=== PATIENT | female | born 1995 | race Caucasian/White ===

== ENCOUNTER → 2022-04-11 | Outpatient (CLI) | payer BC, SELFPAY ==
[2022-04-13 00:07] LABS: Chlamydia By Nucleic Acid AMP Negative (Negative)
[2022-04-13 16:25] LABS: Gonococcus By Nucleic Acid AMP Negative (Negative)
[2022-04-13 18:48] LABS: HPV Reflexed? NOT INDICATED
== END | disposition home or self-care (01) ==
LOC: LABSPEC 12:14
PROVIDERS: Visit Provider Student in an Organized Health Care Education/Training Program
DX: Z12.4 Encounter for screening for malignant neoplasm of cervix (principal); Z11.3 Encounter for screening for infections with a predominantly sexual mode of transmission
CPT/HCPCS: 87491; 87591; 88175; G0145

== ENCOUNTER → 2022-04-21 | Outpatient (CLI) | payer BC, SELFPAY ==
[2022-04-21 12:54] LABS: Estradiol 109.8 pg/mL; Luteinizing Hormone 19.5 mIU/mL; Prolactin 20.5 ng/mL; T4 Free Direct 0.96 ng/dL (0.76-1.46); Thyroid Stim Hormone (TSH) 2.34 uIU/mL (0.358-3.74)
== END | disposition home or self-care (01) ==
LOC: WOBLAB 11:25
PROVIDERS: Visit Provider Student in an Organized Health Care Education/Training Program
DX: N93.9 Abnormal uterine and vaginal bleeding, unspecified (principal)
CPT/HCPCS: 36415; 82670; 83001; 83002; 84146; 84439; 84443

== ENCOUNTER 2023-02-22 16:23 | Emergency (ER) | payer SELFPAY ==
[2023-02-22 16:24] VITALS: BP 120/81; PULSE 61; RESP 18; TEMP 36.2; O2SAT 99; BMI 34.6
--- NOTE | 2023-02-22 17:06 | EDS_ITS ---
HPI HPI - Psych History of Present Illness Chief Complaint: Suicidal Informant: patient Onset/Context/Timing Onset: Today Context: Gradual Onset Conflict: Financial Timing: Continuous Worsened by: Situational factors Relieved by: Nothing Associated Symptoms Associated Symptoms - Psych: Positive for Depressed and Suicidal Thoughts; Negative for Change in Eating, Change in sleeping, Visual Hallucinations or Auditory Hallucinations Specific plan (suicidal thought): Hanging herself Narrative Narrative: Patient presents with suicidal attempt that occurred today. Patient states she did this approximately 2 hours prior to arrival. Patient attempted to hang herself. Patient states she used an electrical cord to try to hang herself. Patient states she has been depressed over her financial situation. Patient states she has a history of depression but currently is not on any antidepressants. Patient currently does not see a psychiatrist or counselor. Patient denies any visual or auditory hallucinations. Patient denies any changes in her eating or sleeping habits. [facility] Medical History (Updated 02/22/23 @ 21:[address] Simba Rousseau DO) Depression Home Medications NK 02/22/23 [History Last Taken Unknown] Allergy/AdvReac Type Severity Reaction Status Date / Time No Known Allergies Allergy Verified 02/22/23 16:24 Surgical History no surgical history no surgical history Social History (Updated 02/22/23 @ 17:[address] Simba Rousseau DO) Smoking Status: Current every day smoker tobacco type: cigarettes substance use type: marijuana ROS ROS ED Constitutional Constitutional ED: Denies chills or fever(s) Eyes Eyes: Denies blurry vision or change in vision ENT ENT ED: Denies rhinorrhea or sore throat Cardiovascular Cardiovascular: Denies chest pain or palpitations Respiratory/Chest Respiratory/Chest: Denies cough or dyspnea Gastrointestinal Gastrointestinal: Denies nausea or vomiting Genitourinary Genitourinary ED: Denies dysuria or hematuria Musculoskeletal Musculoskeletal: Denies back pain or neck pain Integumentary Denies abscess or rash Neurologic Neurologic: Denies headache(s) or weakness Psychiatric Psychiatric: Reports depression, suicidal ideation and suicidal thoughts Allergic/Immunologic Allergic/Immunologic ED: Denies mouth swelling or urticaria EXAM Physical Exam Const Vital Signs: 02/22/23 16:24 Temperature 97.2 F L Temperature Source Temporal Pulse Rate 61 Respiratory Rate 18 Blood Pressure 120/81 H Blood Pressure Mean 94 Pulse Ox 99 Oxygen Delivery Method Room Air Positive well nourished and well developed General Appearance ED: well developed and NAD HEENT normocephalic and atraumatic Neck supple and no JVD Neck Narrative: There is a area of linear erythema that is superficial over the anterior lateral neck. There is no tenderness. There is no subcutaneous emphysema noted. There is full range of motion of the cervical spine. There is no bony crepitance or step-off noted. Patient has normal phonation. Patient's voice is normal for her. Patient has no difficulty talking or swallowing Resp normal respiratory effort and clear to auscultation bilaterally Cardio no murmurs Rate: regular rate Rhythm: regular rhythm GI non-tender and non-distended Auscultation: normoactive bowel sounds Palpation: soft Extremity normal to inspection General Extremety ED: Negative for edema or tenderness General Extremity: Negative for edema Neuro oriented x3, CN's II-XII intact bilaterally and no sensory deficits noted Sensorium / Orientation: alert Motor Exam: strength 5/5 throughout Psych mental status grossly normal Appearance: grossly normal Attitude: calm Activity / Motor Behavior: appropriate eye contact Speech: normal speech Mood & Affect: depressed and flat affect Thought Content: suicidality Memory / Cognition: memory grossly intact Skin Rashes: no rashes MDM MDM MDM Narrative Medical decision making narrative: Differential diagnosis includes suicide attempt, suicide gesture, depression, and anxiety. Medical screening labs will be obtained. CBC will be obtained to assess for leukocytosis and anemia. Basic metabolic profile will be obtained to assess for electrolyte abnormality and renal function. Urine tox screen will be obtained to assess for substance abuse. Serum alcohol level will be obtained to assess for alcohol intoxication. Serum hCG will be obtained to assess for . COVID-19 rapid antigen will be obtained to assess for COVID infection. EKG will be obtained to assess for QT prolongation and dysrhythmia. Lab Data Attestation: I reviewed the patient's lab results. Lab results narrative: CBC was reviewed and was within normal limits. Basic metabolic profile was reviewed and was within normal limits. Serum hCG was reviewed and was negative. Serum alcohol level was reviewed and was negative. Urine tox screen was reviewed and was positive for cannabinoids but was otherwise negative. Labs: Laboratory Results - last 24 hr 02/22/23 02/22/23 02/22/23 17:03 17:03 17:03 WBC 5.1 RBC 4.90 Hgb 14.1 Hct 43.3 MCV 88.4 MCH 28.8 MCHC 32.6 RDW Std Deviation 39.9 RDW Coeff of Haley 12.3 Plt Count 244 MPV 11.1 Immature Gran % (Auto) 0.200 Neut % (Auto) 56.2 Lymph % (Auto) 35.5 Wilcox % (Auto) 6.3 Eos % (Auto) 1.4 Baso % (Auto) 0.4 Absolute Neuts (auto) 2.9 Absolute Lymphs (auto) 1.82 Nucleated RBC % 0 Sodium 142 Potassium 3.8 Chloride 108 H Carbon Dioxide 29.0 Anion Gap 5 BUN 11 Creatinine 0.69 Estim Creat Clear Calc 102.21 Est GFR (MDRD) Af Amer 132 Est GFR (MDRD) Non-Af 109 BUN/Creatinine Ratio 15.9 Glucose 81 Calcium 9.2 Serum , Qual Urine Opiates Screen Urine Methadone Screen Ur Barbiturates Screen Ur Phencyclidine Scrn Ur Amphetamines Screen MDMA (Ecstasy) Screen U Benzodiazepines Scrn Urine Cocaine Screen U Cannabinoids Screen Ur Drug Screen Comment Ethyl Alcohol 5.0 02/22/23 02/22/23 17:03 18:15 WBC RBC Hgb Hct MCV MCH MCHC RDW Std Deviation RDW Coeff of Haley Plt Count MPV Immature Gran % (Auto) Neut % (Auto) Lymph % (Auto) Wilcox % (Auto) Eos % (Auto) Baso % (Auto) Absolute Neuts (auto) Absolute Lymphs (auto) Nucleated RBC % Sodium Potassium Chloride Carbon Dioxide Anion Gap BUN Creatinine Estim Creat Clear Calc Est GFR (MDRD) Af Amer Est GFR (MDRD) Non-Af BUN/Creatinine Ratio Glucose Calcium Serum , Qual NEGATIVE Urine Opiates Screen NEGATIVE Urine Methadone Screen NEGATIVE Ur Barbiturates Screen NEGATIVE Ur Phencyclidine Scrn NEGATIVE Ur Amphetamines Screen NEGATIVE MDMA (Ecstasy) Screen NEGATIVE U Benzodiazepines Scrn NEGATIVE Urine Cocaine Screen NEGATIVE U Cannabinoids Screen POSITIVE H Ur Drug Screen Comment Ethyl Alcohol EKG Initial EKG: Attestation: I personally reviewed and interpreted this EKG as follows: Interpretation: Sinus Rhythm (60) and No Acute Injury Pattern Comments: EKG was obtained. On my independent interpretation, it showed a normal sinus rhythm with a rate of 60. MN interval, QRS interval, and QTc intervals were all normal. [place] was normal. There are no acute ST or T wave changes. Prior EKG tracings: not available for review Prior: No Prior Treatment and Re-Evaluation Narrative: Suicide precautions were maintained. Case was discussed with high school social science teacher. warm in worker stated that since the patient was uninsured, she would need to be seen by crisis. Crisis was in to evaluate the patient and felt the patient would need to be admitted to inpatient psychiatric unit. Crisis stated patient was also from [facility] and she would need to discuss inpatient treatment with the [facility] crisis unit. bindery worker will continue to make arrangements for inpatient admission to a psychiatric unit. Care of the patient will be turned over to the oncoming physician pending placement. Discharge Plan Triage Chief Complaint: Suicidal ED Provider: Simba Rousseau Dx/Rx/DC Orders Clinical Impression: Suicide attempt, Depression Prescriptions: No Action NK Primary Care Provider: Care Physician,No Primary Referrals: NOT,DEFINED [Non-Staff] - Disposition Disposition: Psychiatric Hospital or Unit
[2023-02-22 17:16] LABS: Absolute Lymphocyte Count 1.82 X10^3/uL (0.83-4.51); Absolute Neutrophil Count 2.9 X10^3/uL (2.0-7.7); Basophil# 0.02 X10^3/uL; Basophil% 0.4 % (0-1); Eosinophil# 0.07 X10^3/uL; Eosinophils% 1.4 % (0-5); Hematocrit 43.3 % (37-47); Hemoglobin 14.1 g/dL (12.0-15.0); Lymphocyte # 1.82 X10^3/ul (0.83-4.51); Lymphocyte % 35.5 % (19-41); Mean Corp Hgb Conc 32.6 g/dL (32-36); Mean Corpuscular Hgb 28.8 pg (27.0-32.0); Mean Corpuscular Volume 88.4 fL (81-99); Mean Platelet Vol. 11.1 fl (6.2-12.0); Monocyte# 0.32 X10^3/uL; Monocyte% 6.3 % (0-10); NRBC Flagged by Analyzer 0 % (0-5); Neutrophil # 2.88 X10^3/uL (2.7-7.7); Neutrophil % 56.2 % (47-70); Platelet Count 244 K/mm3 (150-450); RBC Distribution Width CV 12.3 % (11.6-14.6); RBC Distribution Width SD 39.9 fl (35.1-43.9); White Blood Count 5.1 K/mm3 (4.4-11.0)
[2023-02-22 17:29] LABS: Internal QC Validated? YES +Cl - CLEAR BKGD; Pregnancy, Serum, hCG Quali. NEGATIVE Negative
[2023-02-22 17:37] LABS: Anion Gap 5 (5-15); BUN 11 mg/dL (7-18); BUN/Creat Ratio 15.9 RATIO (10-20); Calcium,Total 9.2 mg/dL (8.5-10.1); Chloride 108 mmol/L (98-107); Creatinine, Serum 0.69 mg/dL (0.55-1.02); EST Glomerular Filtration Rate 109 mL/min (>60); Est Glom Filt Rate - Afr Amer 132 mL/min (>60); Estimated Creatinine Clearance 102.21 ml/min; Glucose 81 mg/dL (74-106); Potassium 3.8 mmol/L (3.5-5.1); Sodium Level 142 mmol/L (136-145)
--- NOTE | 2023-02-22 17:42 | CM.ED ---
Addendum entered by Mary Kay Rajan 02/22/23 19:04: JACKY faxed tox screen to [facility]. JACKY contacted [facility] Crisis and spoke with Latasha. Latasha reports computer recycling worker is currently out completing an assessment and will be to the hospital when able. Plan: TBD pending evaluation from [facility] Crisis JANET Meyers Addendum entered by Mary Kay Rajan 02/22/23 18:02: JACKY contacted [facility] Crisis and spoke with Latasha. SW reviewed presenting information and provided demographic information. Patient's chart faxed to [facility], will need tox screen faxed once available. JANET Meyers Original Note: Social Work SW met with patient and introduced herself and role as [facility] Alumni Coordinator. Patient agreeable to speak with JACKY. SW briefly engaged patient in conversation to gather information needed for her mental health assessment, however, patient then reports she no longer has insurance. JACKY reviewed [facility] Crisis evaluation process. JACKY updated care team patient will need to be evaluated by [facility] once medically cleared due to no insurance. JANET Meyers
[2023-02-22 18:52] LABS: Amphetamine Urine VISTA NEGATIVE (<1000 ng/mL); Barbiturate Urine VISTA NEGATIVE (< 200 ng/mL); Benzodiazepine Urine VISTA NEGATIVE (< 200 ng/mL); Cocaine Urine VISTA NEGATIVE (< 300 ng/mL); Ecstacy Urine VISTA NEGATIVE (< 500 ng/mL); Methadone Urine VISTA NEGATIVE (< 300 ng/mL); PCP Urine VISTA NEGATIVE (< 25 ng/mL); THC Urine VISTA POSITIVE (< 50 ng/mL); Vista UDS pH Range 4
--- NOTE | 2023-02-22 18:56 | ED.RN ---
PT GIVEN MEAL. PT COOPERATIVE WITH THIS RN. PT PLEASANT . MEAL AND DRINK PROVIDED
--- NOTE | 2023-02-22 21:10 | EKG12_ITS ---
Test Reason : [facility] Blood Pressure : / mmHG Vent. Rate : 060 BPM Atrial Rate : 060 BPM P-R Int : 128 ms QRS Dur : 086 ms QT Int : 380 ms P-R-T Axes : 024 046 026 degrees QTc Int : 380 ms Normal sinus rhythm Normal ECG Confirmed by ALLY PARNELL, EVELIA ([id number]), publishing editor BERTHA HUMPHRIES ([id number]) on 02/23/2023 1:27:49 PM Referred By: PC Confirmed By:EVELIA CANALES MD
[2023-02-22 23:10] VITALS: BP 110/70; PULSE 64; RESP 18; TEMP 37; O2SAT 97
[2023-02-23] VITALS (8 sets, daily range): BP systolic 113; BP diastolic 68; PULSE 73; RESP 14–16; TEMP 36.6; O2SAT 98
[2023-02-23] MEDS: DiphenhydrAMINE 25 MG Capsule 50 MG PO (02:56)
== END 2023-02-23 07:41 ==
PROVIDERS: Emergency Provider Emergency Medicine; Visit Provider Emergency Medicine
DX: F32.A Depression, unspecified (principal); T14.91XA Suicide attempt, initial encounter; F17.210 Nicotine dependence, cigarettes, uncomplicated
CPT/HCPCS: 80048; 80307; 82077; 84703; 85025; 87811; 93005; 99284